=== PATIENT | female | born 1970 | race Caucasian/White ===

== ENCOUNTER → 2019-07-12 | Outpatient (CLI) | payer OTHER ==
[2019-07-12 12:02] LABS: Basophils # (auto) 0.1 uL; Basophils % (auto) 1.2 % (0.0-2.0); Eosinophils # (auto) 0.1 uL; Eosinophils % (auto) 1.6 % (0.0-7.0); Hemoglobin 14.8 g/dL (12.2-16.2); Lymphocytes # (auto) 1.9 uL; Lymphocytes % (auto) 22.7 % (10.0-50.0); Mean Corpuscular Hemoglobin 32.8 pg (28.0-32.0); Mean Corpuscular Hgb Conc. 33.5 g/dL (32.0-36.0); Monocytes # (auto) 0.6 uL; Neutrophils # (auto) 5.7 uL; Neutrophils % (auto) 67.5 % (37.0-80.0); Platelet Count (auto) 354 10^3/uL (140-450); Red Blood Cells 4.49 10^6/uL (4.0-5.20); Red Cell Distribution Width 12.9 % (11.8-14.3); White Blood Cell 8.5 10^3/uL (4.4-10.8)
[2019-07-12 12:03] LABS: Urine Bacteria FEW /hpf (None Seen); Urine Blood TRACE /uL (Negative); Urine Mucus FEW (None Seen); Urine Specific Gravity 1.012 (1.001-1.035); Urine WBC 1 /hpf (0 - 5)
[2019-07-12 12:11] LABS: Albumin 3.8 g/dL (3.4-5.0); Calcium 9.4 mg/dL (8.5-10.1); Potassium 3.9 mmol/L (3.5-5.1)
[2019-07-12 12:16] LABS: BUN/Creatinine Ratio 14.3; Bilirubin, Total 1.3 mg/dL (0.2-1.0); Total Protein 7.6 g/dL (6.4-8.2)
== END | disposition home or self-care (01) ==
LOC: LAB 11:14
PROVIDERS: ATTEND Internal Medicine Nephrology
DX: J45.909 Unspecified asthma, uncomplicated (principal); M19.90 Unspecified osteoarthritis, unspecified site; M79.7 Fibromyalgia
CPT/HCPCS: 36415; 80053; 80061; 81001; 83036; 84443; 85025

== ENCOUNTER → 2019-10-04 | Outpatient (CLI) | payer OTHER | END | disposition home or self-care (01) | LOC: LAB 08:35 | PROVIDERS: ATTEND Nurse Practitioner Family | DX: Z03.818 Encounter for observation for suspected exposure to other biological agents ruled out (principal) | CPT/HCPCS: C9803; U0003 ==

== ENCOUNTER → 2019-11-29 | Outpatient (CLI) | payer OTHER | END | disposition home or self-care (01) | LOC: LAB 15:56 | PROVIDERS: ATTEND Nurse Practitioner Family | DX: Z03.818 Encounter for observation for suspected exposure to other biological agents ruled out (principal); Z20.828 Contact with and (suspected) exposure to other viral communicable diseases ==

== ENCOUNTER → 2020-01-16 | Day surgery (SDC) | payer OTHER ==
[2020-01-13 09:49] LABS: Basophils # (auto) 0.1 10 ^3/uL (0-0.2); Basophils % (auto) 1.2 % (0.0-2.0); Eosinophils # (auto) 0.1 10 ^3/uL (0-0.8); Eosinophils % (auto) 1.7 % (0.0-7.0); Hematocrit 45.8 % (36.0-46.0); Lymphocytes # (auto) 1.8 10 ^3/uL (0.4-5.4); Lymphocytes % (auto) 27.2 % (10.0-50.0); Mean Corpuscular Hemoglobin 32.6 pg (28.0-32.0); Mean Corpuscular Hgb Conc. 32.7 g/dL (32.0-36.0); Mean Corpuscular Volume 99.9 fL (80.0-100.0); Monocytes # (auto) 0.5 10 ^3/uL (0-1.3); Monocytes % (auto) 8.3 % (0.0-12.0); Neutrophils % (auto) 61.6 % (37.0-80.0); Nucleated Red Blood Cells % 0.1 %; Platelet Count (auto) 345 10^3/uL (140-450); Red Blood Cells 4.59 10^6/uL (4.0-5.20); Red Cell Distribution Width 13.1 % (11.8-14.3); White Blood Cell 6.5 10^3/uL (4.4-10.8)
[2020-01-13 09:54] LABS: Urine Bacteria NONE SEEN /hpf (None Seen); Urine Blood TRACE /uL (Negative); Urine Mucus FEW (None Seen); Urine WBC 2 /hpf (0 - 5)
[2020-01-13 10:02] LABS: INR 0.99 (0.9-1.15); Partial Thromboplastin Time 26.3 sec (23.64-32.05)
[2020-01-13 10:11] LABS: Albumin 3.9 g/dL (3.4-5.0); Calcium 9.8 mg/dL (8.5-10.1); Potassium 3.7 mmol/L (3.5-5.1)
[2020-01-13 10:17] LABS: BUN/Creatinine Ratio 15.2; Bilirubin, Total 0.4 mg/dL (0.2-1.0); Total Protein 7.8 g/dL (6.4-8.2)
[~2020-01-16] VITALS: Ht 157.5 cm; Wt 59.0 kg
[~2020-01-16] MED LIST: ALBUAER3 IN; BUPIVACAINE W/ EPINEPH 0.25% INJ 50ML MDV ONE; CLINDAMYCIN 600MG IV 50 ML IV ONE; FLUT1INH6 IN; GABA100C9 PO; LIDOCAINE W/ EPINEPHRINE 2% INJ 20ML VIAL ONE; MIDAZOLAM HCL 1MG/1ML-2 ML VIAL ONE; MORPHINE SULF(PF) 0.5MG/ML 10ML VIAL ONE; ONDANSETRON HCL 4 MG/2 ML VIAL IV PRN; PROPOFOL 10 MG/ML 20 ML IV ONE; SUCCINYLCHOLINE CHLORIDE 20 MG/ML 10ML VIAL IV ONE; VANCOMYCIN HCL 1000 MG VL ONE; ePHEDrine SULFATE 50 MG/ML AMP IV PRN; fentaNYL CITRATE 100 MCG/2 ML VL IV PRN; fentaNYL CITRATE 100 MCG/2 ML VL ONE; hydrALAZINE HCL 20 MG/ML VL IV PRN
[2020-01-16 09:18] VITALS: BP 113/58
== END | disposition home or self-care (01) ==
LOC: SUR 06:05
PROVIDERS: ATTEND Anesthesiology Pain Medicine
DX: M48.062 Spinal stenosis, lumbar region with neurogenic claudication (principal); J45.909 Unspecified asthma, uncomplicated; Z98.51 Tubal ligation status; Z88.0 Allergy status to penicillin; Z79.899 Other long term (current) drug therapy; Z98.890 Other specified postprocedural states; Z11.59 Encounter for screening for other viral diseases
CPT/HCPCS: 22869; 22870; 36415; 72100; 80053; 81001; 84702; 85025; 85610; 85730; 87086; C1821; J0330; J2250; J2270; J2704; J3010; J3370; J3490; U0003; 76001

== ENCOUNTER → 2021-08-25 | Outpatient (CLI) | payer OTHER ==
[~2021-08-25] MED LIST changes: -BUPIVACAINE W/ EPINEPH 0.25% INJ 50ML MDV ONE; -CLINDAMYCIN 600MG IV 50 ML IV ONE; -LIDOCAINE W/ EPINEPHRINE 2% INJ 20ML VIAL ONE; -MIDAZOLAM HCL 1MG/1ML-2 ML VIAL ONE; -MORPHINE SULF(PF) 0.5MG/ML 10ML VIAL ONE; -ONDANSETRON HCL 4 MG/2 ML VIAL IV PRN; -PROPOFOL 10 MG/ML 20 ML IV ONE; -SUCCINYLCHOLINE CHLORIDE 20 MG/ML 10ML VIAL IV ONE; -VANCOMYCIN HCL 1000 MG VL ONE; -ePHEDrine SULFATE 50 MG/ML AMP IV PRN; -fentaNYL CITRATE 100 MCG/2 ML VL IV PRN; -fentaNYL CITRATE 100 MCG/2 ML VL ONE; -hydrALAZINE HCL 20 MG/ML VL IV PRN
[2021-08-25 09:48] LABS: Basophils # (auto) 0 10 ^3/uL (0-0.2); Basophils % (auto) 0.1 % (0.0-2.0); Eosinophils # (auto) 0 10 ^3/uL (0-0.8); Monocytes # (auto) 0.6 10 ^3/uL (0-1.3); Nucleated Red Blood Cells % 0.1 %
[2021-08-25 09:49] LABS: Hematocrit 44.5 % (36.0-46.0); Lymphocytes # (auto) 1.1 10 ^3/uL (0.4-5.4); Lymphocytes % (auto) 8.4 % (10.0-50.0); Mean Corpuscular Hemoglobin 35.4 pg (28.0-32.0); Mean Corpuscular Hgb Conc. 33.8 g/dL (32.0-36.0); Mean Corpuscular Volume 104.9 fL (80.0-100.0); Monocytes % (auto) 4.8 % (0.0-12.0); Neutrophils # (auto) 11.4 10 ^3/uL (1.6-8.6); Neutrophils % (auto) 86.7 % (37.0-80.0); Red Blood Cells 4.24 10^6/uL (4.0-5.20); White Blood Cell 13.2 10^3/uL (4.4-10.8)
[2021-08-25 09:50] LABS: Albumin 3.3 g/dL (3.4-5.0); Calcium 9.4 mg/dL (8.5-10.1); Potassium 3.2 mmol/L (3.5-5.1)
[2021-08-25 09:59] LABS: BUN/Creatinine Ratio 23.2; Total Protein 7.2 g/dL (6.4-8.2)
== END | disposition home or self-care (01) ==
LOC: LAB 08:22
PROVIDERS: ATTEND Nurse Practitioner Family
DX: J45.20 Mild intermittent asthma, uncomplicated (principal); I10 Essential (primary) hypertension; R53.83 Other fatigue; G62.9 Polyneuropathy, unspecified
CPT/HCPCS: 36415; 80053; 80061; 82306; 85025

== ENCOUNTER 2021-09-13 15:38 | Emergency (ER) | payer OTHER ==
[~2021-09-13] VITALS: Ht 157.5 cm; Wt 59.0 kg
[2021-09-13] MEDS ORDERED: ASPirin 81 mg TAB PO ONE (15:45)
[2021-09-13 16:12] LABS: Basophils # (auto) 0.2 10 ^3/uL (0-0.2); Eosinophils # (auto) 0.3 10 ^3/uL (0-0.8); Eosinophils % (auto) 3.2 % (0.0-7.0); Hematocrit 45.5 % (36.0-46.0); Hemoglobin 15.5 g/dL (12.2-16.2); Lymphocytes # (auto) 1.9 10 ^3/uL (0.4-5.4); Lymphocytes % (auto) 24.1 % (10.0-50.0); Mean Corpuscular Hemoglobin 35.4 pg (28.0-32.0); Mean Corpuscular Hgb Conc. 34.1 g/dL (32.0-36.0); Mean Corpuscular Volume 103.7 fL (80.0-100.0); Monocytes # (auto) 0.4 10 ^3/uL (0-1.3); Neutrophils # (auto) 5.2 10 ^3/uL (1.6-8.6); Neutrophils % (auto) 65.7 % (37.0-80.0); Nucleated Red Blood Cells % 0.1 %; Red Blood Cells 4.38 10^6/uL (4.0-5.20); Red Cell Distribution Width 15.8 % (11.8-14.3); White Blood Cell 7.9 10^3/uL (4.4-10.8)
[2021-09-13 16:28] LABS: Albumin 3.3 g/dL (3.4-5.0); Calcium 9.1 mg/dL (8.5-10.1); Potassium 3.4 mmol/L (3.5-5.1)
[2021-09-13 16:34] LABS: BUN/Creatinine Ratio 10.3; Bilirubin, Total 0.5 mg/dL (0.2-1.0); Total Protein 7.4 g/dL (6.4-8.2)
[2021-09-13 17:28] VITALS: BP 106/68
== END 2021-09-13 17:46 | disposition home or self-care (01) ==
LOC: ER 15:38
DX: R07.89 Other chest pain (principal); F41.9 Anxiety disorder, unspecified; E46 Unspecified protein-calorie malnutrition
CPT/HCPCS: 36415; 70450; 80053; 84484; 85025; 93005

== ENCOUNTER 2022-03-17 06:22 | Day surgery (SDC) | payer OTHER ==
[2022-03-14 13:36] LABS: Basophils # (auto) 0 10 ^3/uL (0-0.2); Basophils % (auto) 0.3 % (0.0-2.0); Eosinophils # (auto) 0.5 10 ^3/uL (0-0.8); Mean Corpuscular Hgb Conc. 33.8 g/dL (32.0-36.0)
[2022-03-14 13:38] LABS: Eosinophils % (auto) 4.4 % (0.0-7.0); Hematocrit 50.7 % (36.0-46.0); Hemoglobin 17.1 g/dL (12.2-16.2); Lymphocytes # (auto) 3.9 10 ^3/uL (0.4-5.4); Lymphocytes % (auto) 38.1 % (10.0-50.0); Mean Corpuscular Volume 106.4 fL (80.0-100.0); Monocytes # (auto) 0.9 10 ^3/uL (0-1.3); Monocytes % (auto) 8.4 % (0.0-12.0); Neutrophils % (auto) 48.8 % (37.0-80.0); Red Blood Cells 4.77 10^6/uL (4.0-5.20); Red Cell Distribution Width 14.6 % (11.8-14.3); White Blood Cell 10.2 10^3/uL (4.4-10.8)
[2022-03-14 14:51] LABS: Albumin 3.8 g/dL (3.4-5.0); Calcium 9.2 mg/dL (8.5-10.1); Potassium 3.8 mmol/L (3.5-5.1)
[2022-03-14 14:56] LABS: BUN/Creatinine Ratio 15.7; Bilirubin, Total 0.8 mg/dL (0.2-1.0); Total Protein 7.8 g/dL (6.4-8.2)
[~2022-03-17] VITALS: Ht 157.5 cm; Wt 56.7 kg
[~2022-03-17 06:22] MED LIST changes: +AMPH10TA2 PO; -GABA100C9 PO
[2022-03-17] MEDS ORDERED: CLINDAMYCIN 600MG IV 50 ML IV ONE (06:39)
[2022-03-17] MEDS ORDERED: LIDOCAINE W/ EPINEPHRINE 2% INJ 20ML VIAL ONE (06:56)
[2022-03-17] MEDS ORDERED: BUPIVACAINE W/ EPINEPH 0.25% INJ 50ML MDV ONE (06:56)
[2022-03-17] MEDS ORDERED: VANCOMYCIN HCL 1000 MG VL ONE (06:58)
[2022-03-17] MEDS ORDERED: MORPHINE SULF PF 5 MG/10 ML VIAL ONE (06:59)
[2022-03-17] MEDS ORDERED: fentaNYL CITRATE 100 MCG/2 ML VL IV PRN (08:00)
[2022-03-17] MEDS ORDERED: METOCLOPRAMIDE HCL 5MG/ml INJ 2ml VIAL IV PRN (08:00)
[2022-03-17] MEDS ORDERED: HYDROmorphone HCL 2 MG/ML VL/or syr IV PRN (08:00)
[2022-03-17] MEDS ORDERED: MORPHINE SULFATE 4 MG/ML SYR/VIAL IV PRN (08:00)
[2022-03-17 08:40] VITALS: BP 121/66
== END 2022-03-17 09:05 | disposition home or self-care (01) ==
LOC: SUR 06:22
PROVIDERS: ATTEND Anesthesiology Pain Medicine
DX: M47.816 Spondylosis without myelopathy or radiculopathy, lumbar region (principal); M48.061 Spinal stenosis, lumbar region without neurogenic claudication; J45.909 Unspecified asthma, uncomplicated; F90.9 Attention-deficit hyperactivity disorder, unspecified type; G89.29 Other chronic pain; F17.200 Nicotine dependence, unspecified, uncomplicated; Z90.49 Acquired absence of other specified parts of digestive tract; Z98.890 Other specified postprocedural states; Z79.899 Other long term (current) drug therapy; Z88.0 Allergy status to penicillin
CPT/HCPCS: 22899; 36415; 72100; 80053; 85025; 85730; C1821; J1170; J2270; J3370; J3490; U0003; 76000

== ENCOUNTER → 2022-09-20 | Outpatient (CLI) | payer OTHER ==
[2022-09-20 09:40] LABS: Basophils # (auto) 0.1 10 ^3/uL (0-0.2); Eosinophils # (auto) 0.3 10 ^3/uL (0-0.8); Hemoglobin 16.1 g/dL (12.2-16.2); Lymphocytes # (auto) 2.4 10 ^3/uL (0.4-5.4); Monocytes # (auto) 0.6 10 ^3/uL (0-1.3); White Blood Cell 8.9 10^3/uL (4.4-10.8)
[2022-09-20 09:44] LABS: Basophils % (auto) 1.3 % (0.0-2.0); Eosinophils % (auto) 3.2 % (0.0-7.0); Hematocrit 47.5 % (36.0-46.0); Mean Corpuscular Hemoglobin 35.5 pg (28.0-32.0); Mean Corpuscular Hgb Conc. 33.9 g/dL (32.0-36.0); Mean Corpuscular Volume 104.5 fL (80.0-100.0); Monocytes % (auto) 7.1 % (0.0-12.0); Neutrophils # (auto) 5.5 10 ^3/uL (1.6-8.6); Neutrophils % (auto) 61.4 % (37.0-80.0); Nucleated Red Blood Cells % 0.2 %; Red Blood Cells 4.55 10^6/uL (4.0-5.20)
[2022-09-20 10:19] LABS: Potassium 4.1 mmol/L (3.5-5.1)
[2022-09-20 10:32] LABS: Barbiturate Scree,Urine NEGATIVE (NEGATIVE); Benzodiazephine Screen, Urine NEGATIVE (NEGATIVE); Cannabinoid Screen, Urine POSITIVE (NEGATIVE); Cocaine Screen, Urine NEGATIVE (NEGATIVE); Phencyclidine Screen, Urine NEGATIVE (NEGATIVE)
[2022-09-20 10:34] LABS: Albumin 3.6 g/dL (3.4-5.0); BUN/Creatinine Ratio 19.6 (10.0-20.0); Bilirubin, Total 0.6 mg/dL (0.2-1.0); Calcium 9.5 mg/dL (8.5-10.1); Total Protein 7.7 g/dL (6.4-8.2)
[2022-09-20 10:44] LABS: Amphetamine Screen, Urine POSITIVE (NEGATIVE); Opiate Scree,Urine X-NORESULT (NEGATIVE)
== END | disposition home or self-care (01) ==
LOC: LAB 09:04
PROVIDERS: ATTEND Nurse Practitioner Family
DX: M54.50 Low back pain, unspecified (principal)
CPT/HCPCS: 36415; 80053; 80061; 80307; 84439; 84443; 85025

== ENCOUNTER → 2023-02-24 | Outpatient (CLI) | payer OTHER ==
[2023-02-24 10:20] LABS: Basophils # (auto) 0.1 10 ^3/uL (0-0.2); Basophils % (auto) 1.3 % (0.0-2.0); Eosinophils # (auto) 0.3 10 ^3/uL (0-0.8); Monocytes # (auto) 0.6 10 ^3/uL (0-1.3); Nucleated Red Blood Cells % 0.1 %; Red Cell Distribution Width 13.5 % (11.8-14.3)
[2023-02-24 10:22] LABS: Eosinophils % (auto) 3.4 % (0.0-7.0); Hematocrit 48.9 % (36.0-46.0); Hemoglobin 16.5 g/dL (12.2-16.2); Lymphocytes # (auto) 2.3 10 ^3/uL (0.4-5.4); Lymphocytes % (auto) 26.1 % (10.0-50.0); Mean Corpuscular Hemoglobin 35.4 pg (28.0-32.0); Mean Corpuscular Hgb Conc. 33.8 g/dL (32.0-36.0); Mean Corpuscular Volume 104.7 fL (80.0-100.0); Monocytes % (auto) 7.2 % (0.0-12.0); Neutrophils # (auto) 5.4 10 ^3/uL (1.6-8.6); Red Blood Cells 4.67 10^6/uL (4.0-5.20); White Blood Cell 8.8 10^3/uL (4.4-10.8)
[2023-02-24 10:57] LABS: Alanine Aminotransferase 38 U/L (7-40); Albumin 4.9 g/dL (3.2-4.8); Alkaline Phosphatase 136 U/L (46-116); Aspartate Aminotransferase 53 U/L (13-40); BUN/Creatinine Ratio 12.5 (10.0-20.0); Blood Urea Nitrogen 8 mg/dL (9-23); Calcium 10.2 mg/dL (8.5-10.1); Chloride 106 mmol/L (98-107); Glucose 93 mg/dL (74-106); Potassium 3.8 mmol/L (3.5-5.1); Sodium 140 mmol/L (136-145)
[2023-02-24 10:58] LABS: Bilirubin, Total 1.8 mg/dL (0.2-1.0)
== END | disposition home or self-care (01) ==
LOC: LAB 09:55
PROVIDERS: ATTEND Nurse Practitioner Family
DX: R63.4 Abnormal weight loss (principal)
CPT/HCPCS: 36415; 80053; 84439; 84443; 85025

== ENCOUNTER 2023-03-29 12:36 | Inpatient (IN) | payer OTHER ==
[~2023-03-29] VITALS: Ht 157.5 cm; Wt 55.5 kg
[2023-03-29 13:53] LABS: Eosinophils # (auto) 0.3 10 ^3/uL (0-0.8); Hemoglobin 15.9 g/dL (12.2-16.2); Monocytes # (auto) 0.4 10 ^3/uL (0-1.3)
[2023-03-29 13:54] LABS: Basophils # (auto) 0.1 10 ^3/uL (0-0.2); Basophils % (auto) 1.4 % (0.0-2.0); Eosinophils % (auto) 3.9 % (0.0-7.0); Hematocrit 47.2 % (36.0-46.0); Lymphocytes # (auto) 2.9 10 ^3/uL (0.4-5.4); Lymphocytes % (auto) 37.9 % (10.0-50.0); Mean Corpuscular Hemoglobin 34.8 pg (28.0-32.0); Mean Corpuscular Hgb Conc. 33.6 g/dL (32.0-36.0); Mean Corpuscular Volume 103.6 fL (80.0-100.0); Monocytes % (auto) 5.7 % (0.0-12.0); Neutrophils # (auto) 3.9 10 ^3/uL (1.6-8.6); Neutrophils % (auto) 51.1 % (37.0-80.0); Nucleated Red Blood Cells % 0.2 %; Red Blood Cells 4.55 10^6/uL (4.0-5.20); Red Cell Distribution Width 13.2 % (11.8-14.3); White Blood Cell 7.7 10^3/uL (4.4-10.8)
[2023-03-29 14:11] LABS: Alanine Aminotransferase 44 U/L (7-40); Albumin 4.6 g/dL (3.2-4.8); Alkaline Phosphatase 119 U/L (46-116); Anion Gap 8 (5-15); Aspartate Aminotransferase 70 U/L (13-40); BUN/Creatinine Ratio 10.8 (10.0-20.0); Bilirubin, Total 0.8 mg/dL (0.2-1.0); Blood Urea Nitrogen 7 mg/dL (9-23); Calcium 9.7 mg/dL (8.7-10.4); Carbon Dioxide 25 mmol/L (20-30); Chloride 110 mmol/L (98-107); Glucose 86 mg/dL (74-106); Potassium 3.9 mmol/L (3.5-5.1); Sodium 143 mmol/L (136-145); Total Protein 7.4 g/dL (5.7-8.2)
[2023-03-29 14:26] LABS: Urine Bacteria MOD /hpf (None Seen); Urine Blood TRACE /uL (Negative); Urine Clarity HAZY (Clear); Urine Color Yellow (Yellow); Urine Mucus FEW (None Seen); Urine Protein, UAD TRACE (Negative); Urine Specific Gravity 1.027 (1.001-1.035); Urine Urobilinogen Normal (Negative); Urine WBC 17 /hpf (0 - 5); Urine pH 5.5 (5.0-8.0)
[2023-03-29] MEDS ORDERED: IOHEXOL 300 MG/ML 100ML BOTTLE IJ ONE (14:48)
[2023-03-29] MEDS ORDERED: ONDANSETRON HCL 4 MG/2 ML VIAL IV PRN (20:15)
[2023-03-29] MEDS ORDERED: ALBUTEROL SULF 2.5 MG/0.5ML(0.5%) NEB SOLN NEB PRN (20:15)
[2023-03-29 21:21] VITALS: BP 133/90; PULSE 103; RESP 18; TEMP 98.2; O2SAT 98
[2023-03-29 21:31] LABS: Hemoglobin 15.8 g/dL (12.2-16.2)
[2023-03-29 22:14] VITALS: BP 132/72; PULSE 65; RESP 18; TEMP 98.7; O2SAT 95
[2023-03-29] MEDS ORDERED: PREG20SO OR (22:18)
[2023-03-29] MEDS: SODIUM CHLORIDE 0.9% 1,000 ML IV SCH (22:52)
[2023-03-30] VITALS (10 sets, daily range): BP systolic 133–143; BP diastolic 57–87; PULSE 67–108; RESP 14–18; TEMP 36.7; O2SAT 94–97
[2023-03-30 06:47] LABS: Eosinophils # (auto) 0.3 10 ^3/uL (0-0.8); Hemoglobin 15.3 g/dL (12.2-16.2); Monocytes # (auto) 0.5 10 ^3/uL (0-1.3); Nucleated Red Blood Cells % 0.1 %
[2023-03-30 06:49] LABS: Basophils # (auto) 0.2 10 ^3/uL (0-0.2); Eosinophils % (auto) 5.2 % (0.0-7.0); Hematocrit 45.5 % (36.0-46.0); Lymphocytes % (auto) 32.8 % (10.0-50.0); Mean Corpuscular Hemoglobin 35.7 pg (28.0-32.0); Mean Corpuscular Hgb Conc. 33.6 g/dL (32.0-36.0); Mean Corpuscular Volume 106.1 fL (80.0-100.0); Neutrophils # (auto) 3.2 10 ^3/uL (1.6-8.6); Red Blood Cells 4.29 10^6/uL (4.0-5.20); White Blood Cell 6.2 10^3/uL (4.4-10.8)
[2023-03-30 06:57] LABS: Chloride 111 mmol/L (98-107); Potassium 3.7 mmol/L (3.5-5.1); Sodium 142 mmol/L (136-145)
[2023-03-30 06:58] LABS: Anion Gap 9 (5-15); Calcium 9.1 mg/dL (8.7-10.4); Carbon Dioxide 22 mmol/L (20-30)
[2023-03-30 07:03] LABS: BUN/Creatinine Ratio 10.9 (10.0-20.0); Blood Urea Nitrogen 6 mg/dL (9-23); Glucose 76 mg/dL (74-106)
[2023-03-30] MEDS: SODIUM CHLORIDE 0.9% 1,000 ML IV SCH ×2 (11:48→23:05)
[2023-03-30] MEDS: metroNIDAZOLE 500MG/100ML 100 ML IV SCH ×2 (14:09→23:00)
[2023-03-30] MEDS: HYDROcodone-ACET 10/325MG TAB PO PRN (22:58)
[2023-03-31] VITALS (7 sets, daily range): BP systolic 119–136; BP diastolic 59–71; PULSE 69–74; RESP 17–20; TEMP 36.6; O2SAT 93–98
[2023-03-31] MEDS: metroNIDAZOLE 500MG/100ML 100 ML IV SCH ×3 (06:14→22:59)
[2023-03-31] MEDS: HYDROcodone-ACET 10/325MG TAB PO PRN ×2 (06:20→18:47)
[2023-03-31] MEDS: SODIUM CHLORIDE 0.9% 1,000 ML IV SCH (12:56)
[2023-04-01] MEDS: SODIUM CHLORIDE 0.9% 1,000 ML IV SCH ×2 (01:35→15:12)
[2023-04-01 04:44] VITALS: BP 129/61; PULSE 74; RESP 18; TEMP 97.6; O2SAT 99
[2023-04-01] MEDS: metroNIDAZOLE 500MG/100ML 100 ML IV SCH ×2 (05:51→15:11)
[2023-04-01] MEDS ORDERED: VANCOMYCIN HCL 125MG/5ML ORAL SOL GT SCH (06:00)
[2023-04-01 06:13] LABS: Alanine Aminotransferase 32 U/L (7-40); Albumin 3.6 g/dL (3.2-4.8); Alkaline Phosphatase 94 U/L (46-116); Anion Gap 7 (5-15); Aspartate Aminotransferase 42 U/L (13-40); Carbon Dioxide 25 mmol/L (20-30); Chloride 107 mmol/L (98-107); Glucose 80 mg/dL (74-106); Sodium 139 mmol/L (136-145)
[2023-04-01 06:14] LABS: Bilirubin, Total 1.4 mg/dL (0.2-1.0); Total Protein 5.8 g/dL (5.7-8.2)
[2023-04-01 06:19] LABS: BUN/Creatinine Ratio 7.8 (10.0-20.0); Blood Urea Nitrogen < 5 mg/dL (9-23)
[2023-04-01 08:00] VITALS: BP 148/75; PULSE 52; RESP 16; TEMP 37; O2SAT 95
[2023-04-01] MEDS: VANCOMYCIN HCL 125MG/5ML ORAL SOL PO SCH ×3 (08:25→17:08)
[2023-04-01] MEDS ORDERED: FLORASTOR (S. BOULARDII) 250 MG CAP PO SCH (10:00)
[2023-04-01 13:00] VITALS: BP 154/72; PULSE 98; RESP 18; TEMP 98.7; O2SAT 91
[2023-04-01] MEDS ORDERED: VANC125PO PO (14:44)
[2023-04-01 17:00] VITALS: BP 144/78; PULSE 83; RESP 18; TEMP 98.2; O2SAT 98
[2023-04-01 18:08] VITALS: TEMP 36.8
[2023-04-03 11:16] LABS: Hepatitis B Core Total AB Negative (Negative)
[2023-04-03 12:22] LABS: Hepatitis A Total Antibody Positive (Negative)
[2023-04-03 12:23] LABS: Hepatitis B Surface Antibody Negative (Negative); Hepatitis B Surface Antigen Negative (Negative); Hepatitis C Antibody Negative (Negative)
== END 2023-04-01 18:30 | disposition home or self-care (01) | DRG 392 ==
LOC: ER 12:36 → EDBD 12:36 → OVERFLOW 20:18 → WEST WING 22:08
PROVIDERS: ADMIT Nurse Practitioner; ATTEND Internal Medicine
DX: K52.9 Noninfective gastroenteritis and colitis, unspecified (principal); F17.210 Nicotine dependence, cigarettes, uncomplicated; Z88.0 Allergy status to penicillin; J45.909 Unspecified asthma, uncomplicated; F90.9 Attention-deficit hyperactivity disorder, unspecified type; N30.90 Cystitis, unspecified without hematuria
CPT/HCPCS: 36415; 74177; 76705; 80048; 80053; 81001; 82270; 85014; 85018; 85025; 85048; 86704; 86706; 86708; 86803; 86850; 86900; 86901; 87045; 87177; 87340; 87427; 87493; 93005; 96374; G0378; J2405; J3490

== ENCOUNTER 2023-05-11 17:22 | Inpatient (IN) | payer OTHER ==
[~2023-05-11] VITALS: Ht 157.5 cm; Wt 47.7 kg
[~2023-05-11 17:22] MED LIST changes: +PREG20SO OR; +VANC125PO PO
[2023-05-11 18:16] LABS: Mean Corpuscular Volume 102.9 fL (80.0-100.0); Monocytes # (auto) 0.5 10 ^3/uL (0-1.3); Neutrophils # (auto) 3.9 10 ^3/uL (1.6-8.6); White Blood Cell 8.2 10^3/uL (4.4-10.8)
[2023-05-11 18:18] LABS: Basophils # (auto) 0 10 ^3/uL (0-0.2); Basophils % (auto) 0.4 % (0.0-2.0); Eosinophils # (auto) 0.7 10 ^3/uL (0-0.8); Lymphocytes # (auto) 3.1 10 ^3/uL (0.4-5.4); Lymphocytes % (auto) 37.9 % (10.0-50.0); Mean Corpuscular Hemoglobin 34.3 pg (28.0-32.0); Mean Corpuscular Hgb Conc. 33.3 g/dL (32.0-36.0); Monocytes % (auto) 5.9 % (0.0-12.0); Neutrophils % (auto) 47.8 % (37.0-80.0); Nucleated Red Blood Cells % 0.1 %; Red Blood Cells 4.66 10^6/uL (4.0-5.20); Red Cell Distribution Width 12.6 % (11.8-14.3)
[2023-05-11 18:35] LABS: Alanine Aminotransferase 20 U/L (7-40); Albumin 4.7 g/dL (3.2-4.8); Alkaline Phosphatase 109 U/L (46-116); Anion Gap 10 (5-15); Aspartate Aminotransferase 30 U/L (13-40); BUN/Creatinine Ratio 15.5 (10.0-20.0); Blood Urea Nitrogen 11 mg/dL (9-23); Calcium 9.6 mg/dL (8.7-10.4); Carbon Dioxide 25 mmol/L (20-30); Chloride 108 mmol/L (98-107); Glucose 83 mg/dL (74-106); Potassium 4.1 mmol/L (3.5-5.1); Sodium 143 mmol/L (136-145); Total Protein 7.4 g/dL (5.7-8.2)
[2023-05-11 19:34] LABS: CRP High Sensitivity 0.03 mg/dL (<1.0)
[2023-05-11 19:42] LABS: Lactic Acid w/Reflex 3.3 mmol/L (0.4-2.0)
[2023-05-11] MEDS ORDERED: metroNIDAZOLE 500MG/100ML 100 ML IV ONE (19:45)
[2023-05-11] MEDS ORDERED: VANCOMYCIN HCL 500MG/5ML ORAL SOL PO ONE (19:45)
[2023-05-11] MEDS ORDERED: IOHEXOL 300 MG/ML 100ML BOTTLE IJ ONE (20:20)
[2023-05-11 21:00] VITALS: PULSE 80; RESP 16; O2SAT 99
[2023-05-11] MEDS ORDERED: SODIUM CHLORIDE 0.9% 1,000 ML IV ONE (21:45)
[2023-05-12] MEDS ORDERED: ACETAMINOPHEN 325 MG TAB PO PRN (00:30)
[2023-05-12] MEDS ORDERED: HYDROcodone-ACET 5/325MG TAB PO PRN (00:30)
[2023-05-12] MEDS: SODIUM CHLORIDE 0.9% 1,000 ML IV SCH ×2 (06:30→19:37)
[2023-05-12] MEDS: metroNIDAZOLE 500MG/100ML 100 ML IV SCH ×3 (06:31→21:21)
[2023-05-12] MEDS: ONDANSETRON HCL 4 MG/2 ML VIAL IV PRN ×3 (06:51→14:32)
[2023-05-12 07:39] LABS: Basophils # (auto) 0.1 10 ^3/uL (0-0.2); Basophils % (auto) 1.4 % (0.0-2.0); Eosinophils # (auto) 0.6 10 ^3/uL (0-0.8); Eosinophils % (auto) 9.4 % (0.0-7.0); Hematocrit 43.2 % (36.0-46.0); Hemoglobin 14.5 g/dL (12.2-16.2); Lymphocytes # (auto) 1.8 10 ^3/uL (0.4-5.4); Lymphocytes % (auto) 28.1 % (10.0-50.0); Mean Corpuscular Hemoglobin 34.7 pg (28.0-32.0); Mean Corpuscular Hgb Conc. 33.6 g/dL (32.0-36.0); Mean Corpuscular Volume 103.4 fL (80.0-100.0); Monocytes # (auto) 0.5 10 ^3/uL (0-1.3); Monocytes % (auto) 7.5 % (0.0-12.0); Neutrophils # (auto) 3.5 10 ^3/uL (1.6-8.6); Neutrophils % (auto) 53.6 % (37.0-80.0); Nucleated Red Blood Cells % 0.1 %; Red Blood Cells 4.17 10^6/uL (4.0-5.20); Red Cell Distribution Width 12.7 % (11.8-14.3); White Blood Cell 6.5 10^3/uL (4.4-10.8)
[2023-05-12] MEDS: MORPHINE SULFATE INJ 2 MG/ml SYRG IV PRN ×2 (09:40→14:45)
[2023-05-12 16:34] VITALS: PULSE 64; RESP 14; O2SAT 94
[2023-05-12] MEDS: VANCOMYCIN HCL 125MG/5ML ORAL SOL PO SCH ×2 (18:00→21:21)
[2023-05-12 18:46] VITALS: RESP 18
[2023-05-12 19:14] VITALS: PULSE 82; RESP 18; O2SAT 98
[2023-05-12 20:00] VITALS: O2SAT 96
[2023-05-12 22:00] VITALS: BP 112/59; PULSE 79; RESP 12; TEMP 98.1; O2SAT 92
[2023-05-12] MEDS: CHOLESTYRAMINE 4 GM POWDER PO SCH (22:46)
[2023-05-13 05:00] VITALS: BP 125/76; PULSE 63; RESP 12; TEMP 97.9; O2SAT 92
[2023-05-13] MEDS: VANCOMYCIN HCL 125MG/5ML ORAL SOL PO SCH ×4 (05:12→21:33)
[2023-05-13] MEDS: metroNIDAZOLE 500MG/100ML 100 ML IV SCH ×3 (05:12→21:35)
[2023-05-13 06:50] LABS: Basophils # (auto) 0.1 10 ^3/uL (0-0.2); Neutrophils # (auto) 2.8 10 ^3/uL (1.6-8.6)
[2023-05-13 06:53] LABS: Basophils % (auto) 1.2 % (0.0-2.0); Eosinophils % (auto) 13.7 % (0.0-7.0); Hematocrit 42.6 % (36.0-46.0); Hemoglobin 14.4 g/dL (12.2-16.2); Lymphocytes # (auto) 2.6 10 ^3/uL (0.4-5.4); Lymphocytes % (auto) 36.7 % (10.0-50.0); Mean Corpuscular Hemoglobin 34.7 pg (28.0-32.0); Mean Corpuscular Hgb Conc. 33.8 g/dL (32.0-36.0); Mean Corpuscular Volume 102.7 fL (80.0-100.0); Monocytes # (auto) 0.6 10 ^3/uL (0-1.3); Neutrophils % (auto) 40.4 % (37.0-80.0); Nucleated Red Blood Cells % 0.1 %; Red Blood Cells 4.15 10^6/uL (4.0-5.20); Red Cell Distribution Width 12.4 % (11.8-14.3)
[2023-05-13 07:15] LABS: Alanine Aminotransferase 15 U/L (7-40); Anion Gap 10 (5-15); Calcium 6.7 mg/dL (8.5-10.1); Carbon Dioxide 23 mmol/L (20-30); Chloride 109 mmol/L (98-107); Potassium 4.4 mmol/L (3.5-5.1); Sodium 142 mmol/L (136-145)
[2023-05-13 07:17] LABS: Aspartate Aminotransferase 20 U/L (13-40); Blood Urea Nitrogen 6 mg/dL (9-23); Glucose 65 mg/dL (74-106)
[2023-05-13 07:19] LABS: Albumin 2.6 g/dL (3.2-4.8); Total Protein 4.1 g/dL (5.7-8.2)
[2023-05-13] MEDS: ONDANSETRON HCL 4 MG/2 ML VIAL IV PRN ×4 (09:22→22:59)
[2023-05-13] MEDS: MORPHINE SULFATE INJ 2 MG/ml SYRG IV PRN ×4 (09:23→23:00)
[2023-05-13 09:32] LABS: Alkaline Phosphatase 83 U/L (46-116)
[2023-05-13 10:24] VITALS: BP 132/78; PULSE 88; RESP 19; TEMP 98.6; O2SAT 96
[2023-05-13] MEDS: SODIUM CHLORIDE 0.9% 1,000 ML IV SCH (11:22)
[2023-05-13] MEDS: CHOLESTYRAMINE 4 GM POWDER PO SCH ×2 (11:22→22:59)
[2023-05-13 13:13] VITALS: BP 133/80; PULSE 90; RESP 19; TEMP 98.6; O2SAT 97
[2023-05-13 16:23] VITALS: BP 145/78; PULSE 71; RESP 19; TEMP 98.4; O2SAT 97
[2023-05-13 22:00] VITALS: BP 134/67; PULSE 74; RESP 18; TEMP 98.2; O2SAT 96
[2023-05-14] MEDS: SODIUM CHLORIDE 0.9% 1,000 ML IV SCH (04:30)
[2023-05-14 05:00] VITALS: BP 117/67; PULSE 56; RESP 17; TEMP 97.5; O2SAT 93
[2023-05-14] MEDS: VANCOMYCIN HCL 125MG/5ML ORAL SOL PO SCH ×2 (05:54→11:25)
[2023-05-14] MEDS: metroNIDAZOLE 500MG/100ML 100 ML IV SCH ×2 (05:54→13:20)
[2023-05-14 09:00] VITALS: BP 125/68; RESP 20; TEMP 97.8; O2SAT 95
[2023-05-14] MEDS: ONDANSETRON HCL 4 MG/2 ML VIAL IV PRN ×2 (09:34→13:47)
[2023-05-14] MEDS: MORPHINE SULFATE INJ 2 MG/ml SYRG IV PRN ×2 (09:35→13:48)
[2023-05-14] MEDS: CHOLESTYRAMINE 4 GM POWDER PO SCH (11:25)
[2023-05-14 11:41] LABS: Basophils # (auto) 0.1 10 ^3/uL (0-0.2); Eosinophils # (auto) 0.6 10 ^3/uL (0-0.8); Hemoglobin 15.3 g/dL (12.2-16.2); Monocytes # (auto) 0.5 10 ^3/uL (0-1.3)
[2023-05-14 11:43] LABS: Basophils % (auto) 0.9 % (0.0-2.0); Eosinophils % (auto) 8.9 % (0.0-7.0); Lymphocytes # (auto) 1.9 10 ^3/uL (0.4-5.4); Lymphocytes % (auto) 26.8 % (10.0-50.0); Mean Corpuscular Hemoglobin 34.2 pg (28.0-32.0); Mean Corpuscular Hgb Conc. 33.3 g/dL (32.0-36.0); Mean Corpuscular Volume 102.6 fL (80.0-100.0); Monocytes % (auto) 6.5 % (0.0-12.0); Neutrophils # (auto) 4.1 10 ^3/uL (1.6-8.6); Neutrophils % (auto) 56.9 % (37.0-80.0); Red Blood Cells 4.48 10^6/uL (4.0-5.20); Red Cell Distribution Width 12.6 % (11.8-14.3); White Blood Cell 7.2 10^3/uL (4.4-10.8)
[2023-05-14 11:59] LABS: Urine Bacteria NONE SEEN /hpf (None Seen); Urine Blood Negative /uL (Negative); Urine Clarity Clear (Clear); Urine Protein, UAD Negative (Negative); Urine Specific Gravity 1.005 (1.001-1.035); Urine Urobilinogen Normal (Negative); Urine WBC <1 /hpf (0 - 5)
[2023-05-14 11:59] LABS: Alanine Aminotransferase 15 U/L (7-40); Alkaline Phosphatase 87 U/L (46-116); Anion Gap 5 (5-15); Aspartate Aminotransferase 22 U/L (13-40); Bilirubin, Total 1.3 mg/dL (0.2-1.0); Calcium 9.2 mg/dL (8.7-10.4); Carbon Dioxide 27 mmol/L (20-30); Chloride 108 mmol/L (98-107); Glucose 85 mg/dL (74-106); Potassium 3.7 mmol/L (3.5-5.1); Sodium 140 mmol/L (136-145); Total Protein 6.3 g/dL (5.7-8.2)
[2023-05-14 12:05] LABS: Urine Color STRAW (Yellow)
[2023-05-14 12:07] LABS: Blood Urea Nitrogen < 5 mg/dL (9-23)
[2023-05-14 13:00] VITALS: BP 155/86; PULSE 77; RESP 20; TEMP 97.6; O2SAT 98
[2023-05-14 14:20] VITALS: BP 145/85; PULSE 75; RESP 20
== END 2023-05-14 16:17 | disposition home or self-care (01) | DRG 392 ==
LOC: ER 17:22 → OVERFLOW 05-12 00:22 → WEST WING 05-12 16:58
PROVIDERS: ADMIT Nurse Practitioner Family; ATTEND Internal Medicine
DX: K52.9 Noninfective gastroenteritis and colitis, unspecified (principal); E78.5 Hyperlipidemia, unspecified; F17.210 Nicotine dependence, cigarettes, uncomplicated; J45.909 Unspecified asthma, uncomplicated; R79.89 Other specified abnormal findings of blood chemistry; E86.0 Dehydration; Z88.0 Allergy status to penicillin; Z90.49 Acquired absence of other specified parts of digestive tract
CPT/HCPCS: 36415; 74177; 80053; 81001; 83605; 83690; 83735; 84484; 85025; 86141; 87040; 93005; 96365; G0378; J2405; J3490